=== PATIENT | male | born 1985 | race Two or more races ===

== ENCOUNTER 2023-09-25 12:39 | Emergency (ER) | payer MEDICAID, SELFPAY ==
[2023-09-25 12:45] VITALS: BP 122/83; PULSE 95; TEMP 36.8; O2SAT 96; BMI 27.7
[2023-09-25 13:05] VITALS: PULSE 84
--- NOTE | 2023-09-25 13:09 | ECG_ITS ---
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
--- NOTE | 2023-09-25 13:10 | ED.GENADUL1 ---
HPI HPI - General Adult General Chief complaint: Overdose Stated complaint: INTOXICATION Time Seen by Provider: 09/25/23 12:47 Source: patient Mode of arrival: walk-in Limitations: no limitations History of Present Illness HPI narrative: 38-year-old male presents because he is intoxicated with ethanol. He was dropped off at an alcohol treatment center but his alcohol level was too high so they dropped him off here to get him less intoxicated. I spoke to the nurse there and they reported that he needs to be below 250 for them to take him. The patient has no physical complaints and states he really does not even want to be here. Related Data Allergies Allergy/AdvReac Type Severity Reaction Status Date / Time No Known Drug Allergies Allergy Verified 09/25/23 12:48 Opioid HPI Opioid Management Most Recent Opioid Data: Last COWS Score 2 09/25/23 13:01 Review of Systems ROS Narrative A ten point review of systems is negative except as noted above. Exam Narrative Exam Narrative: Nurses note and vital signs reviewed and patient is not hypoxic. General: The patient appears well and in no apparent distress. Patient is resting comfortably on cart. Skin: Warm, dry, no pallor noted. There is no rash noted. Head: Normocephalic, atraumatic Eye: Normal conjunctiva, no drainage Ears, Nose, Mouth, and Throat: oral mucosa is moist. Nares patent. Cardiovascular: Regular Rate and Rhythm Respiratory: Patient is in no distress, no accessory muscle use, lungs are clear to auscultation, no wheezing, rales or rhonchi Back: non-tender GI: Soft and nontender Musculoskeletal: The patient has no evidence of calf tenderness, no pitting edema, symmetrical pulses noted bilaterally Neurological: Awake and oriented x 4 Psychiatric: Cooperative Constitutional Vital Signs, click to edit/add: Last Vital Signs Temp 98.3 F 09/25/23 12:45 Pulse 89 09/25/23 16:32 Resp 18 09/25/23 16:32 BP 110/68 09/25/23 16:32 Pulse Ox 99 09/25/23 16:32 O2 Del Method Room Air 09/25/23 12:45 Course Vital Signs Vital signs: Vital Signs Temperature 98.3 F 09/25/23 12:45 Pulse Rate 95 H 09/25/23 12:45 Respiratory Rate 18 09/25/23 12:45 Blood Pressure 122/83 09/25/23 12:45 Pulse Oximetry 96 09/25/23 12:45 Oxygen Delivery Method Room Air 09/25/23 12:45 Temperature 98.3 F 09/25/23 12:45 Pulse Rate 89 09/25/23 16:32 Respiratory Rate 18 09/25/23 16:32 Blood Pressure 110/68 09/25/23 16:32 Pulse Oximetry 99 09/25/23 16:32 Oxygen Delivery Method Room Air 09/25/23 12:45 Medical Decision Making MDM Narrative Medical decision making narrative: He has an alcohol level of 386. Repeat is ordered for 8 PM and the patient is signed out to Dr. Wilcox at change of shift. At 1 point he was given IV Ativan for anxiety. Differential Diagnosis Differential Diagnosis: Alcohol intoxication Lab Data Lab results reviewed: Yes I reviewed the patient's lab results Labs: Lab Results 09/25/23 Range/Units 13:29 WBC 9.5 (4.0-11.0) 10^3/uL RBC 4.47 L (4.70-6.10) 10^6/uL Hgb 14.4 (14.0-18.0) g/dL Hct 40.9 L (42.0-54.0) % MCV 91.5 (80.0-94.0) fL MCH 32.2 (25.9-34.0) pg MCHC 35.2 (29.9-35.2) g/dL RDW 12.2 (11.0-15.0) % Plt Count 248 (150-450) 10^3/uL MPV 9.6 (9.5-13.5) fL Neut % (Auto) 70.0 (43.0-75.0) % Lymph % (Auto) 23.3 (20.5-60.0) % [place] % (Auto) 5.1 (1.7-12.0) % Eos % (Auto) 0.6 L (0.9-7.0) % Baso % (Auto) 0.7 (0.2-2.0) % Neut # (Auto) 6.6 H (1.4-6.5) 10^3/uL Lymph # (Auto) 2.2 (1.2-3.8) 10^3/uL [place] # (Auto) 0.5 (0.3-0.8) 10^3/uL Eos # (Auto) 0.1 (0.0-0.7) 10^3/uL Baso # (Auto) 0.1 (0.0-0.1) 10^3/uL Abs Immat Gran (auto) 0.03 (0.00-0.03) 10^3/uL Imm/Tot Granulo (auto) 0.3 (0.0-0.5) % Sodium 141 (136-145) mmol/L Potassium 3.9 (3.5-5.1) mmol/L Chloride 101 (98-107) mmol/L Carbon Dioxide 26.7 (21.0-32.0) mmol/L Anion Gap 17.2 BUN 11.0 (7.0-18.0) mg/dL Creatinine 0.95 (0.70-1.30) mg/dL Est GFR ( Amer) >60 (>=60) Est GFR (Non-Af Amer) >60 (>=60) BUN/Creatinine Ratio 11.6 Glucose 98 (74-106) mg/dL Calcium 8.4 L (8.5-10.1) mg/dL Total Bilirubin 0.7 (0.2-1.0) mg/dL Direct Bilirubin 0.1 (0.0-0.2) mg/dL AST 54 H (15-37) U/L ALT 31 (16-63) U/L Alkaline Phosphatase 101 (46-116) U/L Total Protein 7.1 (6.4-8.2) g/dL Albumin 3.9 (3.4-5.0) g/dL Globulin 3.2 g/dL Albumin/Globulin Ratio 1.2 Ethanol Quant 386 mg/dL ECG Data Attestation: I personally reviewed and interpreted this ECG as follows: (EKG on my interpretation shows normal sinus rhythm without acute change and a rate of 90) Discharge Plan Discharge Patient Disposition: Still a Patient
[2023-09-25] MEDS: 0.9 % SODIUM CHLORIDE 1,000 ML 1000 ML IV (13:35)
[2023-09-25 13:40] LABS: Basophils Absolute Auto 0.1 10^3/uL (0.0-0.1); Basophils Percent Auto 0.7 % (0.2-2.0); Eosinophils Absolute Auto 0.1 10^3/uL (0.0-0.7); Eosinophils Percent Auto 0.6 % (0.9-7.0); Hematocrit 40.9 % (42.0-54.0); Hemoglobin 14.4 g/dL (14.0-18.0); Immature Granulocytes Abs Auto 0.03 10^3/uL (0.00-0.03); Immature Granulocytes Pct Auto 0.3 % (0.0-0.5); Lymphocytes Absolute Auto 2.2 10^3/uL (1.2-3.8); Lymphocytes Percent Auto 23.3 % (20.5-60.0); Mean Corpuscular HGB Conc 35.2 g/dL (29.9-35.2); Mean Corpuscular Hemoglobin 32.2 pg (25.9-34.0); Mean Corpuscular Volume 91.5 fL (80.0-94.0); Mean Platelet Volume 9.6 fL (9.5-13.5); Monocytes Absolute Auto 0.5 10^3/uL (0.3-0.8); Monocytes Percent Auto 5.1 % (1.7-12.0); Neutrophils Absolute Auto 6.6 10^3/uL (1.4-6.5); Platelet Count 248 10^3/uL (150-450); Red Blood Count 4.47 10^6/uL (4.70-6.10); Red Cell Distribution Width 12.2 % (11.0-15.0); White Blood Count 9.5 10^3/uL (4.0-11.0)
[2023-09-25 13:56] LABS: Anion Gap 17.2
[2023-09-25 13:57] LABS: Alanine Aminotransferase 31 U/L (16-63); Albumin Globulin Ratio 1.2; Albumin Level 3.9 g/dL (3.4-5.0); Alkaline Phosphatase 101 U/L (46-116); Aspartate Amino Transferase 54 U/L (15-37); BUN Creatinine Ratio 11.6; Bilirubin Direct 0.1 mg/dL (0.0-0.2); Bilirubin Total 0.7 mg/dL (0.2-1.0); Calcium 8.4 mg/dL (8.5-10.1); Carbon Dioxide 26.7 mmol/L (21.0-32.0); Chloride 101 mmol/L (98-107); Estimated GFR (African America >60 (>=60); Estimated GFR (Non-African Ame >60 (>=60); Ethanol 386 mg/dL; Globulin 3.2 g/dL; Glucose 98 mg/dL (74-106); Potassium 3.9 mmol/L (3.5-5.1); Sodium 141 mmol/L (136-145); Total Protein 7.1 g/dL (6.4-8.2)
[2023-09-25 16:32] VITALS: BP 110/68; PULSE 89; O2SAT 99
[2023-09-25] MEDS: LORAZEPAM 2 MG/ML VIAL 1 MG IV (17:31)
[2023-09-25 18:02] LABS: Ethanol 266 mg/dL
[2023-09-25 18:45] VITALS: BP 132/90; PULSE 90; O2SAT 100
== END 2023-09-25 18:56 | disposition home or self-care (01) ==
PROVIDERS: Emergency Provider Emergency Medicine
DX: F10.129 Alcohol abuse with intoxication, unspecified (principal); Y90.8 Blood alcohol level of 240 mg/100 ml or more
CPT/HCPCS: 36415; 80048; 80076; 80320; 85025; 93005; 96374; 99285; J2060